=== PATIENT | female | born 2000 | race African-American/Black ===

== ENCOUNTER 2022-07-13 19:17 | Emergency (ER) | payer OTHER ==
[~2022-07-13] VITALS: Ht 162.6 cm; Wt 44.8 kg
[2022-07-13] MEDS ORDERED: predniSONE 20 MG TAB PO ONE (22:05)
[2022-07-13 22:15] LABS: BASO # 0.1 10^3/uL (0.0-0.2); BASO % 1.2 % (0.0-1.0); EOS # 0.3 10^3/uL (0.0-0.5); EOS % 6.4 % (0.0-3.0); HEMATOCRIT 40.1 % (36.0-47.0); HEMOGLOBIN 12.7 g/dl (12.0-15.5); LYMPH # 1.7 10^3/uL (1.5-5.0); LYMPH % 35.7 % (24.0-44.0); MEAN CORPUSCULAR HEMOGLOBIN 27.7 pg (27.0-33.0); MEAN CORPUSCULAR HGB CONC 31.7 g/dl (32.0-36.5); MEAN CORPUSCULAR VOLUME 87.6 fl (80.0-96.0); MONO # 0.5 10^3/uL (0.0-0.8); MONO % 10.2 % (2.0-8.0); NEUTROPHILS # 2.3 10^3/uL (1.5-8.5); NEUTROPHILS % 46.3 % (36.0-66.0); PLATELET COUNT, AUTOMATED 342 10^3/uL (150-450); RED BLOOD COUNT 4.58 10^6/uL (4.00-5.40); WHITE BLOOD COUNT 4.9 10^3/uL (4.0-10.0)
[2022-07-13] MEDS ORDERED: PRED10TA2 PO (22:15)
[2022-07-13 22:20] VITALS: BP 102/67
[2022-07-13 22:23] LABS: ERYTHROCYTE SEDIMENTATION RATE 4 mm/hr (0-20)
[2022-07-13 22:40] LABS: C REACTIVE PROTEIN QUANTITATIV < 0.40 MG/DL (<1.0); HCG, SERUM QUALITATIVE NEGATIVE (NEGATIVE)
[2022-07-13 22:41] LABS: BLOOD UREA NITROGEN 13 MG/DL (9-23); CALCIUM LEVEL 8.4 MG/DL (8.5-10.1); CARBON DIOXIDE LEVEL 30 MMOL/L (20-31); CHLORIDE LEVEL 102 MMOL/L (98-107); CREATININE FOR GFR 0.88 MG/DL (0.55-1.30); GLOMERULAR FILTRATION RATE > 60.0 (>60); GLUCOSE, FASTING 83 MG/DL (60-100); POTASSIUM SERUM 3.7 MMOL/L (3.5-5.1); SODIUM LEVEL 137 MMOL/L (136-145)
[2022-07-13 22:42] LABS: RHEUMATOID FACTOR QUANT 5.7 IU/ML (<14)
== END 2022-07-13 22:26 | disposition home or self-care (01) ==
LOC: EDSEX 19:17 → M ED 19:17
DX: M25.551 Pain in right hip (principal); M25.552 Pain in left hip
CPT/HCPCS: 36415; 80048; 81374; 84703; 85025; 85652; 86038; 86140; 86431; 99283; J7512

== ENCOUNTER 2022-11-22 12:10 | Emergency (ER) | payer OTHER ==
[~2022-11-22] VITALS: Ht 165.1 cm; Wt 59.1 kg
[~2022-11-22 12:10] MED LIST: PRED10TA2 PO
[2022-11-22 15:40] VITALS: BP 102/64; TEMP 98.3; O2SAT 99
== END 2022-11-22 15:41 | disposition home or self-care (01) ==
LOC: M ED 12:10
DX: R22.33 Localized swelling, mass and lump, upper limb, bilateral (principal)

== ENCOUNTER 2023-01-01 06:15 | Emergency (ER) | payer OTHER ==
[~2023-01-01] VITALS: Ht 160 cm; Wt 61.3 kg
[2023-01-01 08:07] VITALS: BP 91/50; TEMP 97.4; O2SAT 100
[2023-01-01] MEDS ORDERED: ACETAMINOPHEN 325 MG TAB PO ONE (08:20)
[2023-01-01] MEDS ORDERED: ONDANSETRON 4MG ORAL DISINTEGRATING TAB PO ONE (08:20)
[2023-01-01] MEDS ORDERED: METOCLOPRAMIDE INJ 10MG/2ML VIAL IV ONE (09:15)
[2023-01-01] MEDS ORDERED: KETOROLAC 30 MG/ML 1ML VIAL IV ONE (09:15)
[2023-01-01] MEDS ORDERED: NS 1,000 ML IV ONE (09:15)
[2023-01-01 09:59] LABS: BASO # 0.1 10^3/uL (0.0-0.2); BASO % 0.8 % (0.0-1.0); EOS # 0.1 10^3/uL (0.0-0.5); EOS % 0.8 % (0.0-3.0); HEMATOCRIT 41.5 % (36.0-47.0); HEMOGLOBIN 13.5 g/dl (12.0-15.5); LYMPH # 0.7 10^3/uL (1.5-5.0); LYMPH % 11.1 % (24.0-44.0); MEAN CORPUSCULAR HEMOGLOBIN 28.4 pg (27.0-33.0); MEAN CORPUSCULAR HGB CONC 32.5 g/dl (32.0-36.5); MEAN CORPUSCULAR VOLUME 87.4 fl (80.0-96.0); MONO # 0.3 10^3/uL (0.0-0.8); MONO % 4.4 % (2.0-8.0); NEUTROPHILS % 82.6 % (36.0-66.0); PLATELET COUNT, AUTOMATED 359 10^3/uL (150-450); RED BLOOD COUNT 4.75 10^6/uL (4.00-5.40); WHITE BLOOD COUNT 6.1 10^3/uL (4.0-10.0)
[2023-01-01 10:26] LABS: ALBUMIN 3.8 G/DL (3.2-5.2); ALKALINE PHOSPHATASE 43 U/L (46-116); ALT/SGPT 12 U/L (7.0-40); AST/SGOT 13 U/L (<34); BILIRUBIN,DIRECT 0.3 MG/DL (<0.4); BILIRUBIN,TOTAL 0.8 MG/DL (0.3-1.2); BLOOD UREA NITROGEN 10 MG/DL (9-23); CARBON DIOXIDE LEVEL 29 MMOL/L (20-31); CHLORIDE LEVEL 103 MMOL/L (98-107); CREATININE FOR GFR 0.87 MG/DL (0.55-1.30); GLOMERULAR FILTRATION RATE > 60.0 (>60); GLUCOSE, FASTING 99 MG/DL (60-100); POTASSIUM SERUM 4.1 MMOL/L (3.5-5.1); SODIUM LEVEL 138 MMOL/L (136-145); TOTAL PROTEIN 7.2 G/DL (5.7-8.2)
[2023-01-01 10:43] LABS: HCG, SERUM QUALITATIVE NEGATIVE (NEGATIVE)
== END 2023-01-01 10:31 | disposition left against medical advice (07) ==
LOC: M ED 06:15
DX: R11.2 Nausea with vomiting, unspecified (principal); R51.9 Headache, unspecified; R19.7 Diarrhea, unspecified; Z53.9 Procedure and treatment not carried out, unspecified reason
CPT/HCPCS: 80048; 80076; 84703; 85025; 96361; 96374; 96375; 99284; J1885; J2765

== ENCOUNTER 2023-12-15 13:07 | Emergency (ER) | payer OTHER, SELFPAY ==
[~2023-12-15] VITALS: Ht 165.1 cm; Wt 65.3 kg
[2023-12-15] MEDS ORDERED: TRAZ-252 (13:18)
[2023-12-15] MEDS ORDERED: SERT25TA21 (13:18)
[2023-12-15 15:12] LABS: BASO # 0.1 10^3/uL (0.0-0.2); BASO % 1.6 % (0.0-1.0); EOS # 0.3 10^3/uL (0.0-0.5); EOS % 7.8 % (0.0-3.0); HEMATOCRIT 37.2 % (36.0-47.0); HEMOGLOBIN 12.2 g/dl (12.0-15.5); LYMPH # 1.6 10^3/uL (1.5-5.0); LYMPH % 36.9 % (24.0-44.0); MEAN CORPUSCULAR HEMOGLOBIN 28.4 pg (27.0-33.0); MEAN CORPUSCULAR HGB CONC 32.8 g/dl (32.0-36.5); MEAN CORPUSCULAR VOLUME 86.5 fl (80.0-96.0); MONO # 0.5 10^3/uL (0.0-0.8); MONO % 12.2 % (2.0-8.0); NEUTROPHILS # 1.8 10^3/uL (1.5-8.5); NEUTROPHILS % 41.3 % (36.0-66.0); PLATELET COUNT, AUTOMATED 333 10^3/uL (150-450); WHITE BLOOD COUNT 4.4 10^3/uL (4.0-10.0)
[2023-12-15 15:31] LABS: LIPASE 36 U/L (12-53)
[2023-12-15 15:34] LABS: ALBUMIN 3.9 G/DL (3.2-5.2); ALKALINE PHOSPHATASE 49 U/L (46-116); ALT/SGPT 13 U/L (7.0-40); AST/SGOT 10 U/L (<34); BILIRUBIN,DIRECT 0.1 MG/DL (<0.4); BILIRUBIN,TOTAL 0.3 MG/DL (0.3-1.2); BLOOD UREA NITROGEN 8 MG/DL (9-23); CALCIUM LEVEL 9.6 MG/DL (8.5-10.1); CARBON DIOXIDE LEVEL 26 MMOL/L (20-31); CHLORIDE LEVEL 104 MMOL/L (98-107); CREATININE FOR GFR 0.67 MG/DL (0.55-1.30); GLOMERULAR FILTRATION RATE > 60.0 (>60); GLUCOSE, FASTING 85 MG/DL (60-100); POTASSIUM SERUM 3.9 MMOL/L (3.5-5.1); SODIUM LEVEL 137 MMOL/L (136-145); TOTAL PROTEIN 7.3 G/DL (5.7-8.2)
[2023-12-15 15:59] LABS: HCG, SERUM QUANTITATIVE 158673.8 MIU/ML (<4.2)
[2023-12-15] MEDS: NS 1,000 ML IV ONE (16:20)
[2023-12-15] MEDS ORDERED: MECL-209 PO (18:13)
[2023-12-15 18:20] VITALS: BP 120/62; TEMP 98.7; O2SAT 100
== END 2023-12-15 18:24 | disposition home or self-care (01) ==
LOC: M ED 13:07
DX: O26.891 Other specified pregnancy related conditions, first trimester (principal); O99.891 Other specified diseases and conditions complicating pregnancy; H81.10 Benign paroxysmal vertigo, unspecified ear; Z3A.01 Less than 8 weeks gestation of pregnancy

== ENCOUNTER 2024-03-28 15:43 | Emergency (ER) | payer OTHER ==
[~2024-03-28] VITALS: Ht 162.6 cm; Wt 66.5 kg
[~2024-03-28 15:43] MED LIST changes: +MECL-209 PO; +SERT25TA21; +TRAZ-252
[2024-03-28 18:30] LABS: BASO % 0.5 % (0.0-1.0); EOS # 0.2 10^3/uL (0.0-0.5); EOS % 2.7 % (0.0-3.0); HEMATOCRIT 32.1 % (36.0-47.0); HEMOGLOBIN 10.8 g/dl (12.0-15.5); LYMPH # 1.6 10^3/uL (1.5-5.0); LYMPH % 21.8 % (24.0-44.0); MEAN CORPUSCULAR HEMOGLOBIN 29.1 pg (27.0-33.0); MEAN CORPUSCULAR HGB CONC 33.6 g/dl (32.0-36.5); MEAN CORPUSCULAR VOLUME 86.5 fl (80.0-96.0); MONO # 0.5 10^3/uL (0.0-0.8); MONO % 6.1 % (2.0-8.0); NEUTROPHILS # 5.1 10^3/uL (1.5-8.5); NEUTROPHILS % 68.4 % (36.0-66.0); PLATELET COUNT, AUTOMATED 268 10^3/uL (150-450); RED BLOOD COUNT 3.71 10^6/uL (4.00-5.40); WHITE BLOOD COUNT 7.4 10^3/uL (4.0-10.0)
[2024-03-28 18:51] LABS: LIPASE 34 U/L (12-53)
[2024-03-28 18:52] LABS: CPK CREATINE PHOSPHOKINASE 94 U/L (34-145)
[2024-03-28 18:53] LABS: ALBUMIN 3.1 G/DL (3.2-5.2); ALKALINE PHOSPHATASE 46 U/L (35-104); ALT/SGPT < 9 U/L (7.0-40); AST/SGOT 12 U/L (<34); BILIRUBIN,DIRECT 0.1 MG/DL (<0.4); BILIRUBIN,TOTAL 0.5 MG/DL (0.3-1.2); BLOOD UREA NITROGEN 9 MG/DL (9-23); CALCIUM LEVEL 9.2 MG/DL (8.5-10.1); CARBON DIOXIDE LEVEL 25 MMOL/L (20-31); CHLORIDE LEVEL 106 MMOL/L (98-107); CK-MB VALUE MASS < 1.0 NG/ML (<3.6); CREATININE FOR GFR 0.69 MG/DL (0.55-1.30); GLOMERULAR FILTRATION RATE > 60.0 (>60); GLUCOSE, FASTING 71 MG/DL (60-100); MB/CK RELATIVE INDEX 1.06 (< OR =4); POTASSIUM SERUM 3.5 MMOL/L (3.5-5.1); SODIUM LEVEL 137 MMOL/L (136-145); TOTAL PROTEIN 6.7 G/DL (5.7-8.2)
[2024-03-28 22:15] LABS: CK-MB VALUE MASS < 1.0 NG/ML (<3.6)
[2024-03-28 22:17] LABS: CPK CREATINE PHOSPHOKINASE 82 U/L (34-145); MB/CK RELATIVE INDEX 1.21 (< OR =4)
[2024-03-28 23:00] VITALS: BP 105/59; TEMP 97.6; O2SAT 99
== END 2024-03-28 23:12 | disposition home or self-care (01) ==
LOC: EDBD 15:43 → M ED 15:43
DX: R07.89 Other chest pain (principal); Z3A.22 22 weeks gestation of pregnancy; O99.342 Other mental disorders complicating pregnancy, second trimester; Z79.899 Other long term (current) drug therapy

== ENCOUNTER 2024-04-11 14:05 | Outpatient (CLI) | payer OTHER ==
[~2024-04-11] VITALS: Ht 162.6 cm; Wt 65.9 kg
[2024-04-11] MEDS ORDERED: HOME MED LIST COMPLETE! XX SCH (14:20)
[2024-04-11] MEDS ORDERED: PRENTAB9 PO (14:20)
[2024-04-11] MEDS ORDERED: ASPI81CH33 PO (14:20)
[2024-04-11] MEDS ORDERED: TUMS500C PO (14:20)
[2024-04-11] MEDS ORDERED: ASPI-655 PO (14:20)
[2024-04-11 14:32] VITALS: BP 103/63; O2SAT 98
[2024-04-11] MEDS ORDERED: SERT25TA85 PO (14:34)
== END 2024-04-11 16:45 | disposition home or self-care (01) ==
LOC: M LDO 14:05
PROVIDERS: ATTEND Obstetrics & Gynecology
DX: O26.892 Other specified pregnancy related conditions, second trimester (principal); R19.7 Diarrhea, unspecified; O21.8 Other vomiting complicating pregnancy; Z3A.23 23 weeks gestation of pregnancy

== ENCOUNTER 2024-06-23 13:37 | Emergency (ER) | payer OTHER ==
[~2024-06-23] VITALS: Ht 165.1 cm; Wt 75.1 kg
[~2024-06-23 13:37] MED LIST changes: +ASPI-655 PO; +ASPI81CH33 PO; +PRENTAB9 PO; +SERT25TA85 PO; +TUMS500C PO
[2024-06-23 15:57] LABS: BASO % 0.6 % (0.0-1.0); EOS # 0.1 10^3/uL (0.0-0.5); EOS % 2.1 % (0.0-3.0); HEMATOCRIT 35.7 % (36.0-47.0); HEMOGLOBIN 11.8 g/dl (12.0-15.5); LYMPH # 1.1 10^3/uL (1.5-5.0); MEAN CORPUSCULAR HEMOGLOBIN 29.2 pg (27.0-33.0); MEAN CORPUSCULAR HGB CONC 33.1 g/dl (32.0-36.5); MEAN CORPUSCULAR VOLUME 88.4 fl (80.0-96.0); MONO # 0.6 10^3/uL (0.0-0.8); MONO % 9.3 % (2.0-8.0); NEUTROPHILS # 4.5 10^3/uL (1.5-8.5); PLATELET COUNT, AUTOMATED 212 10^3/uL (150-450); RED BLOOD COUNT 4.04 10^6/uL (4.00-5.40); WHITE BLOOD COUNT 6.5 10^3/uL (4.0-10.0)
[2024-06-23 16:09] LABS: INR 0.92; PARTIAL THROMBOPLASTIN TIME 24.4 SECONDS (24.8-34.2); PROTHROMBIN TIME 12.7 SECONDS (12.5-14.5)
[2024-06-23 16:23] LABS: CK-MB VALUE MASS < 1.0 NG/ML (<3.6)
[2024-06-23 16:24] LABS: LIPASE 35 U/L (12-53)
[2024-06-23 16:25] LABS: CPK CREATINE PHOSPHOKINASE 140 U/L (34-145); MB/CK RELATIVE INDEX 0.71 (< OR =4)
[2024-06-23 16:26] LABS: ALBUMIN 2.9 G/DL (3.2-5.2); ALKALINE PHOSPHATASE 131 U/L (35-104); ALT/SGPT 10 U/L (7.0-40); AST/SGOT 14 U/L (<34); BILIRUBIN,DIRECT < 0.1 MG/DL (<0.4); BILIRUBIN,TOTAL 0.5 MG/DL (0.3-1.2); BLOOD UREA NITROGEN 10 MG/DL (9-23); CALCIUM LEVEL 8.7 MG/DL (8.5-10.1); CARBON DIOXIDE LEVEL 25 MMOL/L (20-31); CHLORIDE LEVEL 106 MMOL/L (98-107); CREATININE FOR GFR 0.67 MG/DL (0.55-1.30); FREE T4 1.01 NG/DL (0.89-1.76); GLOMERULAR FILTRATION RATE > 60.0 (>60); GLUCOSE, FASTING 77 MG/DL (60-100); POTASSIUM SERUM 4.4 MMOL/L (3.5-5.1); SODIUM LEVEL 138 MMOL/L (136-145); THYROID STIMULATING HORMONE 1.652 uIU/ML (0.55-4.78); TOTAL PROTEIN 6.6 G/DL (5.7-8.2)
[2024-06-23] MEDS: ACETAMINOPHEN 500 MG TAB PO ONE (20:26)
[2024-06-23] MEDS: OMEPRAZOLE 20MG CAP PO ONE (20:26)
[2024-06-23 21:00] VITALS: BP 102/63; TEMP 98.2; O2SAT 99
== END 2024-06-23 21:15 | disposition home or self-care (01) ==
LOC: M ED 13:37
DX: O99.891 Other specified diseases and conditions complicating pregnancy (principal); O99.613 Diseases of the digestive system complicating pregnancy, third trimester; Z3A.34 34 weeks gestation of pregnancy; Z79.82 Long term (current) use of aspirin; Z79.899 Other long term (current) drug therapy

== ENCOUNTER → 2024-07-06 | Outpatient (REF) | payer OTHER | LOC: M SFHCWAGY 15:00 | PROVIDERS: ATTEND Obstetrics & Gynecology | DX: Z36.85 Encounter for antenatal screening for Streptococcus B (principal); Z3A.36 36 weeks gestation of pregnancy ==

== ENCOUNTER 2024-07-18 09:36 | Outpatient (CLI) | payer OTHER ==
[~2024-07-18] VITALS: Ht 165.1 cm; Wt 78.4 kg
[2024-07-18 09:50] VITALS: BP 114/69
[2024-07-19] MEDS ORDERED: ACET-907 PO (08:27)
== END 2024-07-18 11:48 | disposition home or self-care (01) ==
LOC: M LDO 09:36
PROVIDERS: ATTEND Obstetrics & Gynecology
DX: O47.03 False labor before 37 completed weeks of gestation, third trimester (principal); O26.853 Spotting complicating pregnancy, third trimester; O99.343 Other mental disorders complicating pregnancy, third trimester; F32.A Depression, unspecified; Z3A.37 37 weeks gestation of pregnancy
CPT/HCPCS: 59025; G0463

== ENCOUNTER 2024-07-19 00:11 | Outpatient (CLI) | payer OTHER ==
[~2024-07-19] VITALS: Ht 165.1 cm; Wt 77.5 kg
[2024-07-19 00:46] VITALS: BP 110/66
[2024-07-19 02:41] VITALS: BP 117/67
[2024-07-19] MEDS ORDERED: ACET-907 PO (08:27)
== END 2024-07-19 02:42 | disposition home or self-care (01) ==
LOC: M LDO 00:11
PROVIDERS: ATTEND Obstetrics & Gynecology
DX: O47.1 False labor at or after 37 completed weeks of gestation (principal); O99.343 Other mental disorders complicating pregnancy, third trimester; F32.A Depression, unspecified; Z3A.38 38 weeks gestation of pregnancy
CPT/HCPCS: 59025; G0463

== ENCOUNTER → 2024-08-25 | Outpatient (REF) | payer OTHER ==
[~2024-08-25] MED LIST changes: +ACET-907 PO
[2024-08-25 15:35] LABS: Trichomonas vaginalis (AMP) NOT DETECTED (NEGATIVE)
[2024-08-25 15:59] LABS: GC DNA AMPLIFICATION NEGATIVE (NEGATIVE)
== END ==
LOC: M PLALAB 11:21
PROVIDERS: ATTEND Advanced Practice Midwife
DX: Z11.3 Encounter for screening for infections with a predominantly sexual mode of transmission (principal)

== ENCOUNTER → 2025-02-22 | Outpatient (REF) | payer OTHER ==
[~2025-02-22] MED LIST changes: -ASPI-655 PO; +ASPI-737 PO
[2025-02-22 16:53] LABS: Trichomonas vaginalis (AMP) NOT DETECTED (NEGATIVE)
[2025-02-22 17:16] LABS: GC DNA AMPLIFICATION NEGATIVE (NEGATIVE)
== END ==
LOC: M SFHCWAGY 15:10
PROVIDERS: ATTEND Nurse Practitioner Family
DX: Z11.3 Encounter for screening for infections with a predominantly sexual mode of transmission (principal); Z12.4 Encounter for screening for malignant neoplasm of cervix
CPT/HCPCS: 87661; 87810; 87850; G0123

== ENCOUNTER → 2025-02-22 | Outpatient (REF) | payer OTHER | LOC: M PLALAB 14:22 | PROVIDERS: ATTEND Nurse Practitioner Family | DX: Z12.4 Encounter for screening for malignant neoplasm of cervix (principal); Z53.9 Procedure and treatment not carried out, unspecified reason ==